=== PATIENT | female | born 1955 | race Caucasian/White ===

== ENCOUNTER 2016-08-23 08:34 | Inpatient (IN) | payer OTHER ==
[~2016-08-23] VITALS: Ht 162.6 cm; Wt 92.7 kg
[~2016-08-23 08:34] MED LIST: ALBI1INJ2 SQ; ASPI81CH CHEW; CARB50TA3 PO; D31000TA; FOLI1TAB4 PO; HYDR-3583 PO; INSU1INJ14 SQ; LEVO25TA39 PO; METF-382 PO; PANT40TA3 PO; ROPI1TAB PO; SERT-129 PO; VITA100021 SL; YL V100T PO
[2016-08-23] MEDS ORDERED: ceFAZolin 1,000 MG/NS 100 ML IV SCH ×2 (09:15)
[2016-08-23] MEDS: SODIUM CHLORID 0.9% 500 ML IV SCH ×2 (09:15→22:12)
[2016-08-23] MEDS ORDERED: INSULIN HUMAN REGULAR 1,000 UNITS/10 ML VIAL SQ PRN (09:15)
[2016-08-23] MEDS ORDERED: LACTATED RINGER'S 1000 ML IV SCH (09:15)
[2016-08-23] MEDS ORDERED: METOPROLOL TARTRATE 25 MG TAB PO PRN (09:15)
[2016-08-23] MEDS ORDERED: CARB50TA3 PO ×2 (09:50)
--- NOTE | 2016-08-23 09:50 | RADRPT ---
EXAM DATE/TIME: 08/23/2016 09:13 [facility] COMPARISON: No previous studies available for comparison. INDICATIONS : Evaluate pneumonia, pneumothorax, or communicable disease. Pre op for lumbar surgery. MEDICAL HISTORY : None. SURGICAL HISTORY : None. ENCOUNTER: Initial ACUITY: 1 day PAIN SCORE: 0/10 LOCATION: Bilateral chest FINDINGS: A single view of the chest demonstrates the lungs to be symmetrically aerated without evidence of mas s, infiltrate or effusion. The cardiomediastinal contours are unremarkable. Osseous structures are intact. CONCLUSION: No acute cardiopulmonary process. Chance Poe MD on August 23, 2016 at 9:48 Board Certified Radiologist. This report was verified electronically.
[2016-08-23 09:59] VITALS: BP 134/66; PULSE 55; RESP 20; TEMP 97.9; O2SAT 95
[2016-08-23 10:04] LABS: AUTOMATED NEUTROPHIL # 3.6 TH/MM3 (1.8-7.7); BASOPHIL # 0.1 TH/MM3 (0-0.2); BASOPHIL % 0.9 % (0.0-2.0); EOSINOPHIL # 0.4 TH/MM3 (0-0.4); HEMO FLAGS DIFF FINAL; LYMPHOCYTE # 1.5 TH/MM3 (1.0-4.8); MEAN CELL VOLUME 96.2 FL (80.0-100.0); MEAN CORPUSCULAR HEMOGLOBIN 31.7 PG (27.0-34.0); MEAN CORPUSCULAR HGB CONC 32.9 % (32.0-36.0); MONO % 8.5 % (0.0-8.0); NEUT % 59.6 % (16.0-70.0); PLATELET COUNT 215 TH/MM3 (150-450); RED BLOOD COUNT 3.54 MIL/MM3 (4.00-5.30); RED CELL DISTRIBUTION WIDTH 14.1 % (11.6-17.2)
[2016-08-23 10:13] LABS: APTT (PATIENT) 25.7 SEC (24.3-30.1); PROTHROMBIN TIME - PATIENT 10.5 SEC (9.8-11.6)
[2016-08-23 10:24] LABS: BICARBONATE 25.7 MEQ/L (21.0-32.0); POTASSIUM 4.2 MEQ/L (3.5-5.1)
--- NOTE | 2016-08-23 10:40 | EKG ---
Date Performed: 08/23/2016 Time Performed: 09:47:27 PTAGE: 61 years EKG: SUPRAVENTRICULAR BRADYCARDIA MARKED LEFT AXIS DEVIATION LOW QRS VOLTAGE IN PRECORDIAL LEADS MODERATE VOLTAGE CRITERIA FOR LVH, CONSIDER NORMAL VARIANT POSSIBLE ANTERIOR MYOCARDIAL INFARCTION , PROBABLY OLD ABNORMAL ECG PREVIOUS TRACING : 09/06/2006 12.47 DOCTOR: Efren Segura Interpretating Date/Time 08/23/2016 10:39:38
[2016-08-23] MEDS ORDERED: ONDANSETRON HCL 4 MG/2 ML VIAL IV PUSH ONE (12:00)
[2016-08-23] MEDS ORDERED: SODIUM CHLORID 0.9% 500 ML INJ 500 ML IV ONE (12:00)
[2016-08-23] MEDS ORDERED: NEOSTIGMINE 3 MG/3 ML SYR IV ONE (12:00)
[2016-08-23] MEDS ORDERED: LACTATED RINGER'S 1000 ML INJ 2,000 ML IV ONE (12:00)
[2016-08-23] MEDS ORDERED: PROPOFOL 200 MG/20 ML AMP IV ONE (12:00)
[2016-08-23] MEDS ORDERED: ePHEDrine/NS 25 MG/5 ML SYR IV ONE (12:00)
[2016-08-23] MEDS ORDERED: THROMBIN (TOPICAL) 5,000 UNIT VIAL ONE (13:27)
[2016-08-23] MEDS ORDERED: GENTAMICIN SULFATE 80 MG/2 ML VIAL ONE (13:27)
[2016-08-23] MEDS ORDERED: GELFOAM SIZE 100 ONE (13:27)
[2016-08-23] MEDS ORDERED: LIDOCAINE 1%/EPINEPHrine 1:100,000 SOLN 20 ML VIAL ONE (13:41)
[2016-08-23] MEDS ORDERED: BUPIVACAINE HCL PF 0.25% 30 ML VIAL ONE (13:41)
[2016-08-23] MEDS ORDERED: ACETAMINOPHEN 1000 MG/100 ML VIAL IV ONE (13:52)
[2016-08-23] MEDS ORDERED: APREPITANT 40 MG CAP ONE (13:52)
[2016-08-23] MEDS ORDERED: DEXAMETHASONE SOD PHOS 4 MG/ML VIAL ONE (13:52)
[2016-08-23] MEDS ORDERED: MIDAZOLAM HCL 2 MG/2 ML VIAL ONE (13:52)
[2016-08-23] MEDS ORDERED: ceFAZolin INJ 1,000 MG VIAL IV ONE (17:15)
[2016-08-23] MEDS ORDERED: BUPIVACAINE LIPOSOME PF 1.3% 20 ML VIAL INFIL ONE (17:39)
[2016-08-23] MEDS ORDERED: DO NOT ADM ANY ANTICOAGULANT DRUGS XX PRN (18:23)
[2016-08-23] MEDS ORDERED: traMADol HCL 50 MG TAB PO PRN (18:30)
[2016-08-23] MEDS ORDERED: DEXTROSE 50% IN WATER 50 ML VIAL(D50) IV PUSH PRN (18:30)
[2016-08-23] MEDS ORDERED: HYDROmorphone HCL PF 1 MG/ML VIAL IV PRN ×2 (18:30)
[2016-08-23] MEDS ORDERED: fentaNYL CITRATE 250 MCG/5 ML AMP ONE (18:30)
[2016-08-23] MEDS ORDERED: GLUCAGON 1 MG/ML VIAL OTHER PRN (18:30)
[2016-08-23] MEDS ORDERED: SODIUM CHLORIDE 0.9% FLUSH 5 ML FLUSH IVF PRN (18:30)
[2016-08-23] MEDS ORDERED: HYDROmorphone HCL 2 MG TAB PO PRN (18:30)
[2016-08-23] MEDS ORDERED: NALOXONE HCL 0.4 MG/ML AMP IV PRN (18:30)
[2016-08-23] MEDS ORDERED: *morphine SULFATE 8 MG/ML PERIprocedure ONLY ONE (18:31)
--- NOTE | 2016-08-23 18:49 | RADRPT ---
EXAM DATE/TIME: 08/23/2016 15:09 [facility] COMPARISON: No previous studies available for comparison. INDICATIONS : Level Localization L3,L4 and L4,L5. MEDICAL HISTORY : None. SURGICAL HISTORY : None. ENCOUNTER: Initial ACUITY: 1 day PAIN SCORE: Non-responsive. LOCATION: Lumbar spine. FINDINGS: Intraoperative examination demonstrates a localizing probe pointing towards L3-4 and L4-5. CONCLUSION: Intraoperative changes as above. Jose Rodriguez MD on August 23, 2016 at 18:47 Board Certified Radiologist. This report was verified electronically.
--- NOTE | 2016-08-23 18:51 | PD.OP ---
Operative Report Date of Surgery: Aug 23, 2016 Preoperative Diagnosis: (1) Lumbar stenosis with neurogenic claudication (2) Synovial cyst of lumbar facet joint (3) Spondylolisthesis of lumbar region 1. Severe lumbar stenosis L4 5 greater than L3 4 with secondary severe neurogenic claudication 2. Lumbar radiculopathy 3. Grade 1 L5-S1 spondylolisthesis Postoperative Diagnosis: (1) Lumbar stenosis with neurogenic claudication (2) Synovial cyst of lumbar facet joint (3) Spondylolisthesis of lumbar region 1. Severe lumbar stenosis L4 5 greater than L3 4 with secondary severe neurogenic claudication 2. Lumbar radiculopathy 3. Grade 1 L5-S1 spondylolisthesis 4. Large L4 5 synovial cyst Procedure: 1. L4 5 decompressive semi-laminectomy, bilateral medial facetectomy and foraminotomy 2. Resection large L4 5 synovial cyst, lysis of adhesions 3. L3 4 bilateral decompressive semi-laminectomy, medial facetectomy, foraminotomy 4. Use of intraoperative microscope was high-powered magnification for resection synovial cyst, lysis of adhesions Anesthesia: Gen. endotracheal Surgeon: Reji Maldonado Bilingual Call Center Representative(s): Katia John Resident Surgeon: Operation and Findings: Findings: Large L4 5 synovial cyst in the central dorsal canal causing severe compression of the thecal sac with necrotic dark contents. Severe L3 4 and L4 5 ligament hypertrophy Procedure in detail: The patient was brought into the operating room and general endotracheal anesthesia induced without difficulty. MONICA hose and sequential compression devices were placed. The Lombardo catheter was placed. Lines were established by anesthesia. The patient was positioned on the concentric Anup table with the side bolsters and all extremities appropriately padded. Appropriate time-out procedure was performed with all personnel present and in agreement. 1% Xylocaine with epinephrine was used for local infiltration over the incision site which was made just to the left of midline at the L3-5 level. The incision was carried sharply down to the lumbodorsal fascia which was incised adjacent to the spinous processes. Obrien elevator was used for subperiosteal elevation of paraspinous musculature and fascia away from the lamina and spinous process. The deep self-retaining retractor was placed. The appropriate levels were verified with intraoperative C-arm. Microscope was moved into place and used for the remainder of the procedure including the closure. At sequentially the L3 4 and then L4 5 level starting on the left side and then working across the midline to the opposite side, the TPS drill with a 5 mm bone bur followed by the 4 mm angela bur was used to remove the inferior two thirds of the more cephalad lamina and the superior aspect of the more caudal lamina along with a moderate amount of the bilateral medial facet, taking care not to disrupt the integrity of the facet or pars intra-articularis. The hypertrophied ligamentum flavum at each level was elevated away from the thecal sac with the thin ligament dissector and resected with the 15 blade knife and the Kerrison rongeur out to the level of the deep lateral recess to completely decompress the thecal sac and exiting nerve roots. The ligamentum flavum was severely hypertrophied at each level, was severe compression of the thecal sac and lateral recess. At the L4 5 level, upon removal of the lamina and medial facet, a dark yellow to brown structure was encountered which required additional bone removal for complete exposure down to normal dura above and below the abnormal lesion. Careful dissection under high part magnification with the microscope revealed a probable synovial cyst with a dark necrotic central core. There were significant adhesions to the surrounding thecal sac and exiting nerve root. The synovial cyst was causing very severe compression on the thecal sac. Very careful dissection was performed to gradually free up and left the synovial cyst away from the thecal sac and exiting nerve roots. The Rulo and Rhoton dissectors were then used to further free up the exiting nerve roots and thecal sac from the hypertrophied facet and ligamentum flavum and adhesions along the lateral recess at each level on each side. The exiting nerve roots were followed to the level of the medial pedicle to ensure that they were well decompressed. At each level on each side, the superior aspect of the more inferior facet along with hypertrophied ligament at the medial foramen were removed with the Kerrison rongeur to perform the bilateral foraminotomy. The L5-S1 level was inspected and there was a very solid fusion with extensive bone growth across the dorsal interlaminar space. Considering that the L5-S1 level appeared to have a very solid chronic fusion which did not explain the patient's recent progressive symptoms, and due to the obvious severe compression of the thecal sac at the L4 5 level from the synovial cyst, it was elected not to decompress the L5-S1 level. The nerve roots appeared well decompressed at the end of the procedure. No spinal fluid leakage was encountered. The disc and annulus at each level was visualized to make sure that there was no significant disc displacement or herniation. There was moderate calcified posterior annulus at the L3 4 level which impinged on the ventral thecal sac, but did not appear to cause overall significant canal stenosis or compression of the exiting L4 nerve roots. In order to avoid causing additional instability at the L3 4 level, it was elected not to resect the posterior osteophyte disc complex, but to instead rely on a thorough decompression of the canal to decompress neural structures. Bleeding was carefully controlled with the bipolar forceps. A 10 mm flat fluted drain was left in place at the operative site and brought out through an incision in the mid lumbar region and secured to the skin with nylon suture and attached to a bulb suction. The closure was performed with 0 Vicryl interrupted for the deep and superficial fascia, with 3-0 Vicryl interrupted subcutaneous closure, and 4-0 Vicryl running subcuticular closure. A dressing of sterile Mastisol, Steri- Strips, and Primapore was placed. The patient was taken to recovery room in stable condition. All counts were correct at the end of the case. Estimated blood loss was 300 cc. Specimen of the L4 5 synovial cyst was sent to pathology given the dark necrotic appearance of the lesion. Reji Maldonado MD Aug 23, 2016 18:51
[2016-08-23] MEDS: 1/2 NS + KCL 20 MEQ INJ 1,000 ML IV SCH (19:00)
[2016-08-23 19:12] LABS: AUTOMATED NEUTROPHIL # 6.5 TH/MM3 (1.8-7.7); BASOPHIL % 0.3 % (0.0-2.0); EOSINOPHIL % 0.1 % (0.0-4.0); HEMATOCRIT 32.9 % (35.0-46.0); HEMO FLAGS DIFF FINAL; LYMPH % 9.4 % (9.0-44.0); LYMPHOCYTE # 0.7 TH/MM3 (1.0-4.8); MEAN CELL VOLUME 96.6 FL (80.0-100.0); MEAN CORPUSCULAR HEMOGLOBIN 31.8 PG (27.0-34.0); MEAN CORPUSCULAR HGB CONC 32.9 % (32.0-36.0); MONO % 1.6 % (0.0-8.0); NEUT % 88.6 % (16.0-70.0); PLATELET COUNT 195 TH/MM3 (150-450); RED BLOOD COUNT 3.41 MIL/MM3 (4.00-5.30); RED CELL DISTRIBUTION WIDTH 14.2 % (11.6-17.2); WHITE BLOOD COUNT 7.4 TH/MM3 (4.0-11.0)
[2016-08-23 20:30] VITALS: BP 108/69; PULSE 70; RESP 18; TEMP 96.9; O2SAT 93
[2016-08-23] MEDS: INSULIN NovoLIN REGULAR SUPPLEMENTAL SCALE SQ SCH (21:00)
[2016-08-23] MEDS: SODIUM CHLORIDE 0.9% FLUSH 5 ML FLUSH IVF SCH (21:00)
[2016-08-24] VITALS: BP_SYST 111; BP_SYST 93; BP_DIAS 47; BP_DIAS 54; PULSE 51; RESP 18; TEMP 96.7; O2SAT 94
[2016-08-24] MEDS: 1/2 NS + KCL 20 MEQ INJ 1,000 ML IV SCH ×2 (03:52→15:00)
[2016-08-24 04:00] VITALS: BP 103/54; PULSE 50; RESP 18; TEMP 96; O2SAT 97
[2016-08-24] MEDS: INSULIN NovoLIN REGULAR SUPPLEMENTAL SCALE SQ SCH ×4 (06:38→22:06)
[2016-08-24 07:33] LABS: AUTOMATED NEUTROPHIL # 4.6 TH/MM3 (1.8-7.7); BASOPHIL % 0.3 % (0.0-2.0); EOSINOPHIL % 0.6 % (0.0-4.0); HEMATOCRIT 28.1 % (35.0-46.0); HEMO FLAGS DIFF FINAL; LYMPH % 23.7 % (9.0-44.0); LYMPHOCYTE # 1.6 TH/MM3 (1.0-4.8); MEAN CELL VOLUME 96.4 FL (80.0-100.0); MEAN CORPUSCULAR HEMOGLOBIN 33.4 PG (27.0-34.0); MEAN CORPUSCULAR HGB CONC 34.6 % (32.0-36.0); MONO % 7.5 % (0.0-8.0); NEUT % 67.9 % (16.0-70.0); PLATELET COUNT 180 TH/MM3 (150-450); RED BLOOD COUNT 2.92 MIL/MM3 (4.00-5.30); RED CELL DISTRIBUTION WIDTH 14.3 % (11.6-17.2); WHITE BLOOD COUNT 6.8 TH/MM3 (4.0-11.0)
[2016-08-24 08:00] VITALS: BP 114/57; PULSE 60; RESP 16; TEMP 96.5; O2SAT 92
[2016-08-24 08:08] LABS: BICARBONATE 27.1 MEQ/L (21.0-32.0); POTASSIUM 4.2 MEQ/L (3.5-5.1)
[2016-08-24] MEDS: SODIUM CHLORIDE 0.9% FLUSH 5 ML FLUSH IVF SCH ×2 (08:44→21:00)
[2016-08-24 12:00] VITALS: BP 101/53; PULSE 54; RESP 18; TEMP 97.7; O2SAT 95
[2016-08-24] MEDS: MORPHINE SULFATE 4 MG/ML INJ IV PRN ×2 (14:44→22:07)
[2016-08-24 16:00] VITALS: BP 106/54; PULSE 52; RESP 19; TEMP 97.8; O2SAT 95
[2016-08-24] MEDS ORDERED: HYDR-3583 PO (19:22)
--- NOTE | 2016-08-24 19:23 | HHI.DCPOC ---
Discharge Care Plan Diagnosis: (1) Lumbar stenosis with neurogenic claudication (2) Synovial cyst of lumbar facet joint (3) Spondylolisthesis of lumbar region Your Health Problems Are: Difficulty with ADL Incision/Drains Exercise Tolerance Chronic Pain Goals to Promote Your Health * To prevent worsening of your condition and complications * To maintain your health at the optimal level Directions to Meet Your Goals Take your medications as prescribed Follow your dietary instruction Follow activity as directed Keep your appointments as scheduled Take your immunizations and boosters as scheduled If your symptoms worsen call your PCP, if no PCP go to Urgent Care Center or Emergency Room Smoking is Dangerous to Your Health. Avoid second hand smoke Call the 24-hour hour crisis hotline for domestic abuse at Reji Maldonado MD Aug 24, 2016 19:23
--- NOTE | 2016-08-24 19:27 | HHI.DS ---
Discharge Summary Admission Date Aug 23, 2016 at 18:33 Discharge Date: Aug 25, 2016 Admitting Diagnosis Severe lumbar stenosis with neurogenic claudication (1) Lumbar stenosis with neurogenic claudication ICD Code: M48.06 (2) Synovial cyst of lumbar facet joint ICD Code: M71.38 (3) Spondylolisthesis of lumbar region ICD Code: M43.16 Procedures 08/23/16: L3 4 and L4 5 decompressive semi-laminectomy, resection L45 synovial cyst CBC/BMP: 08/24/16 0657 08/24/16 0657 Significant Findings Laboratory Tests Test 08/23/16 08/23/16 08/23/16 08/24/16 09:35 18:25 18:55 06:57 Red Blood Count 3.54 MIL/MM3 3.41 MIL/MM3 2.92 MIL/MM3 (4.00-5.30) (4.00-5.30) (4.00-5.30) Hemoglobin 11.2 GM/DL 10.9 GM/DL 9.7 GM/DL (11.6-15.3) (11.6-15.3) (11.6-15.3) Hematocrit 34.0 % 32.9 % 28.1 % (35.0-46.0) (35.0-46.0) (35.0-46.0) Monocytes (%) (Auto) 8.5 % (0.0-8.0) Eosinophils (%) (Auto) 6.0 % (0.0-4.0) Estimat Glomerular Filtration 62 ML/MIN (>89) 63 ML/MIN (>89) 73 ML/MIN (>89) Rate Random Glucose 119 MG/DL 168 MG/DL 111 MG/DL (74-106) (74-106) (74-106) Neutrophils (%) (Auto) 88.6 % (16.0-70.0) Lymphocytes # (Auto) 0.7 TH/MM3 (1.0-4.8) Hospital Course Patient admitted for the above-noted procedure. Significant intraoperative and initial postoperative blood loss necessitating drain placement. 08/24/16: Patient ambulating 150 feet with physical therapy. However still significant drain output, up to 100 cc per shift. 08/25/16: Lumbar drain DC'd. Discharge home. Pt Condition on Discharge: Stable Discharge Disposition: Discharge Home Discharge Instructions DIET: Follow Instructions for: As Tolerated, No Restrictions ACTIVITIES You can perform: Weight Bearing As Marcella Activities to Avoid: Lifting/Bending, Strenuous Activity Follow up Referrals: Appointment for Follow Up @ Dr. Maldonado Continued Medications: Albiglutide 4-Pack Inj (Tanzeum 4-Pack Inj) 50 Mg Pfpen 50 MG SQ Q7D #4 PEN Carbidopa-Levodopa ER (Carbidopa-Levodopa ER) 50-200 Mg Tab 2 TAB PO AC BREAKFAST Parkinson Disease Mgmt Ref 0 TAB Carbidopa-Levodopa ER (Carbidopa-Levodopa ER) 50-200 Mg Tab 1 TAB PO DAILY Parkinson Disease Mgmt Ref 0 TAB Carbidopa-Levodopa ER (Carbidopa-Levodopa ER) 50-200 Mg Tab 1 TAB PO DAILY Parkinson Disease Mgmt Ref 0 TAB Cholecalciferol (D3) 1,000 Unit Tab Cyanocobalamin (Vitamin B-12) 1,000 Mcg Subl 1000 MCG SL DAILY Nutritional Supplement Ref 0 TAB.SL Folic Acid (Folate) 1 Mg Tab 1 MG PO DAILY Nutritional Supplement Ref 0 TAB Hydrocodone-Acetaminophen (Hydrocodone-Acetaminophen) 10-325 mg Tab 1 TAB PO Q4H PRN PAIN #90 Ref 0 TAB (This prescription has been renewed) Insulin Degludec Inj (Tresiba Flextouch Pen Inj) 300 unit/3 ML Pen 1 UNITS SQ TID Blood Sugar Management #15 Ref 0 ML Levothyroxine (Levoxyl) 25 Mcg Tab 25 MCG PO DAILY Thyroid #30 Ref 0 TAB Metformin ER (Metformin ER) 1,000 Mg Vandana 1000 MG PO DAILY With evening meal Blood Sugar Management #30 Ref 0 TAB Pantoprazole (Pantoprazole) 40 Mg Tab 40 MG PO DAILY Reflux #30 Ref 0 TAB Pyridoxine (Vitamin B-6) 100 Mg Tab 100 MG PO DAILY TAB Ropinirole (Ropinirole) 1 Mg Tab 1 MG PO TID #90 Ref 0 TAB Sertraline (Sertraline) 100 Mg Tab 100 MG PO DAILY #30 Ref 0 TAB Discontinued Medications: Aspirin (Aspirin) 81 Mg Chew 81 MG CHEW DAILY Ref 0 TAB Reji Maldonado MD Aug 24, 2016 19:27
--- NOTE | 2016-08-24 19:31 | HHI.NSPN ---
History Chief Complaint: back pain Interval History 61-year-old female with history of severe progressive neurogenic claudication. Further week prior to admission, patient unable to even stand without severe low back and lower extremity pain symptoms and weakness. Preoperative imaging studies was severe L4 5 greater than L3 4 canal and L5-S1 lateral recess stenosis. Admitted for the above-noted procedure. Intraoperatively patient noted to have large L4 5 synovial cyst with severe canal compromise. Lumbar drain placed due to increased intraoperative bleeding. 08/24/16 patient ambulating much better with physical therapy compared to preoperative. However still significantly increased lumbar drain output. Exam Results Vital Signs Date Time Temp Pulse Resp B/P Pulse Ox O2 Delivery O2 Flow Rate FiO2 08/24/16 16:00 97.8 52 19 106/54 95 08/23/16 19:15 Nasal Cannula 4 Intake and Output 08/23/16 08/23/16 08/24/16 08:00 16:00 00:00 Intake Total 2100 ml Output Total 730 ml Balance 1370 ml Physical Examination Respirations clear to auscultation Cardiac regular without murmur No significant extremity edema Sensation intact light touch lower extremities Strength 5/5 throughout the lower extremities No ankle clonus Lumbar drain with moderate output, greater than 25 cc per 6 hours this afternoon with 100 cc output for the first shift this morning. Lab, Micro, Other Results Laboratory Tests Test 08/24/16 06:57 White Blood Count 6.8 TH/MM3 Red Blood Count 2.92 MIL/MM3 Hemoglobin 9.7 GM/DL Hematocrit 28.1 % Mean Corpuscular Volume 96.4 FL Mean Corpuscular Hemoglobin 33.4 PG Mean Corpuscular Hemoglobin 34.6 % Concent Red Cell Distribution Width 14.3 % Platelet Count 180 TH/MM3 Mean Platelet Volume 7.6 FL Neutrophils (%) (Auto) 67.9 % Lymphocytes (%) (Auto) 23.7 % Monocytes (%) (Auto) 7.5 % Eosinophils (%) (Auto) 0.6 % Basophils (%) (Auto) 0.3 % Neutrophils # (Auto) 4.6 TH/MM3 Lymphocytes # (Auto) 1.6 TH/MM3 Monocytes # (Auto) 0.5 TH/MM3 Eosinophils # (Auto) 0.0 TH/MM3 Basophils # (Auto) 0.0 TH/MM3 CBC Comment DIFF FINAL Differential Comment Sodium Level 141 MEQ/L Potassium Level 4.2 MEQ/L Chloride Level 105 MEQ/L Carbon Dioxide Level 27.1 MEQ/L Anion Gap 9 MEQ/L Blood Urea Nitrogen 13 MG/DL Creatinine 0.80 MG/DL Estimat Glomerular Filtration 73 ML/MIN Rate Random Glucose 111 MG/DL Calcium Level 8.5 MG/DL Medical Decision Making Impression and Plan Impression: 1. Doing well following L3 4, L4 5 decompressive semi-laminectomy, resection of large L4 5 synovial cyst. Ambulation much improved postoperative. Continues to have significant drain output Plan: Findings discussed with the patient and her . Continue to mobilize out of bed as tolerated Tolerating diet adequately. Continue drain. Anticipate drain removal in the morning with discharge home. Wound care, activity precautions, signs and symptoms to watch for fully discussed with the patient and her . Option of home or outpatient physical therapy discussed and she wishes to defer this at the present time and instead do independent exercises which have been discussed with her. Reji Maldonado MD Aug 24, 2016 19:31
[2016-08-24 20:00] VITALS: BP 120/57; PULSE 58; RESP 24; TEMP 99.4; O2SAT 94
[2016-08-25] VITALS: BP 118/59; PULSE 76; RESP 22; TEMP 98.6; O2SAT 93
[2016-08-25 04:00] VITALS: BP 120/54; PULSE 90; RESP 22; TEMP 98.7; O2SAT 94
[2016-08-25] MEDS: INSULIN NovoLIN REGULAR SUPPLEMENTAL SCALE SQ SCH ×2 (06:08→10:52)
[2016-08-25 07:50] VITALS: BP 137/76; PULSE 61; RESP 16; TEMP 99.4; O2SAT 96
[2016-08-25] MEDS: SODIUM CHLORIDE 0.9% FLUSH 5 ML FLUSH IVF SCH (09:00)
--- NOTE | 2016-08-25 14:39 | HHI.NSPN ---
History Chief Complaint: back pain Interval History 61-year-old female with history of severe progressive neurogenic claudication. Further week prior to admission, patient unable to even stand without severe low back and lower extremity pain symptoms and weakness. Preoperative imaging studies was severe L4 5 greater than L3 4 canal and L5-S1 lateral recess stenosis. Admitted for the above-noted procedure. Intraoperatively patient noted to have large L4 5 synovial cyst with severe canal compromise. Lumbar drain placed due to increased intraoperative bleeding. 08/24/16 patient ambulating much better with physical therapy compared to preoperative. However still significantly increased lumbar drain output. 08/25/16: Still moderate drain output but more serous fluid this morning. Exam Results Vital Signs Date Time Temp Pulse Resp B/P Pulse Ox O2 Delivery O2 Flow Rate FiO2 08/25/16 07:50 99.4 61 16 137/76 96 08/23/16 19:15 Nasal Cannula 4 Intake and Output 08/24/16 08/24/16 08/25/16 08:00 16:00 00:00 Intake Total 859 ml 550 ml Output Total 900 ml 30 ml Balance -41 ml 520 ml Physical Examination Respirations clear and regularur No significant extremity edema Sensation intact light touch lower extremities Strength 5/5 throughout the lower extremities No ankle clonus Lumbar drain with moderate output, approximately 35 cc last shift. However the appearance is less bloody and more serosanguineous in appearance. Medical Decision Making Impression and Plan Impression: 1. Doing well following L3 4, L4 5 decompressive semi-laminectomy, resection of large L4 5 synovial cyst. Ambulation much improved postoperative. Plan: Findings discussed with the patient Tolerating diet adequately. Discontinue drain. Discharge home today Wound care, activity precautions, signs and symptoms to watch for fully discussed with the patient and her . Option of home or outpatient physical therapy discussed and she wishes to defer this at the present time and instead do independent exercises which have been discussed with her. Reji Maldonado MD Aug 25, 2016 14:39
[2016-10-19] MEDS ORDERED: HYDR-3583 PO (15:32)
== END 2016-08-25 11:40 | disposition home or self-care (01) | DRG 517 ==
LOC: HSDC 08:34 → HSDI 18:33 → N05B 20:06
PROVIDERS: ADMIT Neurological Surgery; ATTEND Neurological Surgery
PROC: 01NB0ZZ Release Lumbar Nerve, Open Approach (ICD-10-PCS; 2016-08-23)
PROC: 0QB00ZZ Excision of Lumbar Vertebra, Open Approach (ICD-10-PCS; principal; 2016-08-23 13:59)
DX: M48.06 Spinal stenosis, lumbar region (principal); M54.16 Radiculopathy, lumbar region; M43.16 Spondylolisthesis, lumbar region; M71.38 Other bursal cyst, other site; M43.17 Spondylolisthesis, lumbosacral region; G20 Parkinson's disease
CPT/HCPCS: 71010; 72020; 76000; 80048; 82948; 85025; 85610; 85730; 88304; 88305; 88311; 93005; 94150; C9290; J0131; J0690; J1100; J1580; J2250; J2270; J2405; J2710; J3010; J7040; J7120; J8501